=== PATIENT | female | born 1960 | race Caucasian/White ===

== ENCOUNTER → 2016-07-23 | Outpatient (CLI) | payer OTHER ==
[~2016-07-23] MED LIST: BARIUM SULFATE 60% 355 ML SUSP PO ONE
--- NOTE | 2016-07-23 09:09 | RAD ---
Small bowel series, 07/23/2016: History: Abdominal pain The preliminary abdominal image demonstrates a nonspecific gas pattern. There is no evidence of organomegaly. Overhead and spot films were obtained following oral ingestion of liquid barium. 2 fluoroscopic spot images were recorded. 0.4 minutes of fluoroscopy time was utilized. The small bowel loops are of normal caliber with no evidence of thickening of their folds. There was prompt passage of the barium through the small bowel into the colon. The terminal ileum is unremarkable. IMPRESSION: No significant small bowel abnormality is detected.
== END | disposition home or self-care (01) ==
LOC: RAD 08:02
PROVIDERS: ATTEND Internal Medicine Gastroenterology
DX: R10.30 Lower abdominal pain, unspecified (principal)
CPT/HCPCS: 74250